=== PATIENT | female | born 1995 | race Caucasian/White ===

== ENCOUNTER 2017-05-16 01:09 | Emergency (ER) | payer OTHER ==
[2017-05-16] MEDS ORDERED: NS 0.9% 1000 ML* 1,000 ML IV ONE (03:17)
--- NOTE | 2017-05-16 06:55 | ED ---
Joseph Mueller Rebecca, scribed for Sandy Ugalde MD on 05/16/17 at 0135 . Substance Abuse/Use - HPI Summary HPI Summary: Pt is a 21 y/o F BIBA who presents to ED with EtOH intoxication. When asked what happened, the pt reports "a lot of alcohol." Confirms that she did not sustain any trauma or sexual assault. 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 Denies any injury or pain including CP. Per EMS, they found her in her dorm after being alerted to the pt by [facility]. - History Of Current Complaint Chief Complaint: EDSubstanceAbuse Stated Complaint: ALCOHOL CONSUMPTION Hx Obtained From: Patient, EMS Ingestion History: Type/Name Of Drug - EtOH Overdose Characteristics: Oral Aggravating Factor(s): Nothing Alleviating Factor(s): Nothing Associated Signs And Symptoms: Vomiting - Allergies/Home Medications Allergies/Adverse Reactions: Allergies Allergy/AdvReac Type Severity Reaction Status Date / Time No Known Allergies Allergy Verified 05/16/17 04:13 PMH/Surg Hx/FS Hx/Imm Hx Endocrine/Hematology History: Denies: Hx Diabetes Cardiovascular History: Denies: Hx Hypertension Infectious Disease History: No Infectious Disease History: Denies: Traveled Outside the [place] in Last 30 Days - Family History Known Family History: Negative: Diabetes - Social History Alcohol Use: Daily Substance Use Type: Reports: None Smoking Status (MU): Never Smoked Tobacco Review of Systems Negative: Blurred Vision, Diplopia Negative: Ear Ache Negative: Chest Pain Negative: Shortness Of Breath Positive: Vomiting. Negative: Abdominal Pain, Diarrhea Negative: dysuria, hematuria Negative: Rash, Bruising Positive: Other - EtOH intoxication All Other Systems Reviewed And Are Negative: Yes Physical Exam - Summary Physical Exam Summary: Appearance: Appears tired and appears intoxicated, vomit in the bag that was on her chest, answering all questions Skin: Warm, dry, no mottling, no rashes, no contusions HEENT: EOMI, PERRL, moist mucous membranes Neck: No masses on the neck, supple Respiratory: Clear to auscultation, breath sounds present, no rales, no rhonchi , no wheezes Cardiovascular: RRR, pulses are symmetrical in both lower and upper extremities Abdomen: Soft, non-tender Bowel Sounds: Present Musculoskeletal: No CVA tenderness, no obvious deformity, moving all extremities in a grossly normal manner Neurological: A&Ox3, CN II-XII Intact, moving all extremities symmetrically Psychiatric: Normal affect and mood Triage Information Reviewed: Yes Vital Signs On Initial Exam: Initial Vitals Temp Pulse Resp BP Pulse Ox 97.1 F 55 18 114/75 99 05/16/17 01:12 05/16/17 01:12 05/16/17 01:12 05/16/17 01:12 05/16/17 01:12 Vital Signs Reviewed: Yes - [place] Coma Scale Coma Scale Total: 14 Diagnostics - Vital Signs Vital Signs Temp Pulse Resp BP Pulse Ox 05/16/17 01:12 97.1 F 55 18 114/75 99 - Laboratory Lab Statement: Any lab studies that have been ordered have been reviewed, and results considered in the medical decision making process. Re-Evaluation - Re-Evaluation First Eval Re-Evaluation Time: 02:29 Comment: Pt is resting comfortably, O2 saturation is good and she is breathing comfortably. Course/Dx - Course Assessment/Plan: Pt is a 21 y/o F BIBA who presents to ED with EtOH intoxication. When asked what happened, the pt reports "a lot of alcohol." Confirms that she did not sustain any trauma or sexual assault. 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 Denies any injury or pain including CP. Per EMS, they found her in her dorm after being alerted to the pt by [facility]. Serum alcohol of 217. In the ED course pt received fluids. At approxiamtely 0830 when EtOH is expected to be metabolised, the pt should be reevaluted for discharge. - Diagnoses Provider Diagnoses: Acute alcohol intoxication Discharge - Discharge Plan Condition: Stable Disposition: HOME Referrals: [facility], [facility] [Primary Care Provider] - The documentation as recorded by the Joseph alston Rebecca accurately reflects the service I personally performed and the decisions made by me, Sandy Ugalde MD.
[2017-05-16 09:14] VITALS: BP 114/81
--- NOTE | 2017-05-19 13:08 | ED ---
Modesta Mueller Edward, scribed for Shaq Magdaleno MD on 05/16/17 at 0732 . Progress - Progress Note Progress Note: Pt is signed out by Dr. Ugalde at shift change. PHYSICAL EXAM: VITAL SIGNS: Reviewed. GENERAL: Patient is a well-developed and nourished female who is lying comfortable in the stretcher. Patient is not in any acute respiratory distress. HEAD AND FACE: No signs of trauma. No ecchymosis, hematomas or skull depressions. No sinus tenderness. EYES: PERRLA, EOMI x 2, No injected conjunctiva, no nystagmus. EARS: Hearing grossly intact. Ear canals and tympanic membranes are within normal limits. MOUTH: Oropharynx within normal limits. NECK: Supple, trachea is midline, no adenopathy, no JVD, no carotid bruit, no c- spine tenderness, neck with full ROM. CHEST: Symmetric, no tenderness at palpation LUNGS: Clear to auscultation bilaterally. No wheezing or crackles. CVS: Regular rate and rhythm, S1 and S2 present, no murmurs or gallops appreciated. ABDOMEN: Soft, non-tender. No signs of distention. No rebound no guarding, and no masses palpated. Bowel sounds are normal. EXTREMITIES: FROM in all major joints, no edema, no cyanosis or clubbing. NEURO: Alert and oriented x 3. No acute neurological deficits. Speech is normal and follows commands. SKIN: Dry and warm Re-Evaluation - Re-Evaluation First Eval Re-Evaluation Time: 02:29 Comment: Pt is resting comfortably, O2 saturation is good and she is breathing comfortably. 2 Re-Evaluation Time: 07:20 Change: Unchanged Comment: Sleeping comfortably Course/Dx - Course Course Of Treatment: Pt is signed out by Dr. Ugalde at shift change. Pt comes to the ED for EtOH intoxication. At re-eval the pt is sleeping comfortably in the stretcher. The pt will be d/c home at around 08:30 in the morning. At approximately 08:30 the pt is hemodynamically table and A&Ox3 with normal cognition and normal ambulation. The pt is also eating and drinking w/o n/v. Therefore the pt will be d/c home with f/u with PCP. - Diagnoses Provider Diagnoses: Acute alcohol intoxication The documentation as recorded by the Modesta alston Edward accurately reflects the service I personally performed and the decisions made by me, Shaq Magdaleno MD.
== END 2017-05-16 09:14 | disposition home or self-care (01) ==
LOC: ED 01:09
DX: F10.129 Alcohol abuse with intoxication, unspecified (principal); Y90.7 Blood alcohol level of 200-239 mg/100 ml
CPT/HCPCS: 36415; 80320; 96360; 99283; G0480